=== PATIENT | female | born 1990 | race Caucasian/White ===

== ENCOUNTER 2018-05-23 06:20 | Emergency (ER) | payer BC, OTHER ==
[2018-05-23 07:00] LABS: Absolute Lymphocytes (CBC) 1.3 K/uL (0.7-4.9); Absolute Monocytes 0.5 K/uL (0.1-1.3); Absolute Neutrophil 7.4 K/uL (1.8-8.0); Basophils % 0.6 % (0-1.3); Eosinophils % 0.9 % (0-4.4); Hematocrit 32.1 % (36.0-45.0); Lymphocytes % 13.8 % (15.3-44.8); MPV 7.3 fL (7.6-11.3); Monocytes % 5.5 % (3.3-12.3); RBC Red Blood Cell Count 4.33 M/uL (3.86-4.86)
[2018-05-23 07:03] LABS: Protime INR 1.08
[2018-05-23 07:22] LABS: ALT/SGPT 23 U/L (12-78); AST/SGOT 9 U/L (15-37); Albumin 3.5 g/dL (3.4-5.0); Alkaline Phosphatase 126 U/L (45-117); BUN Blood Urea Nitrogen 12 mg/dL (7-18); Bicarbonate 24 mmol/L (21-32); Bilirubin Direct 0.1 mg/dL (0-0.2); Bilirubin Total 0.5 mg/dL (0.2-1.0); Glucose Level 102 mg/dL (74-106); Magnesium 1.9 mg/dL (1.8-2.4); Potassium 3.7 mmol/L (3.5-5.1); Protein, Total 7.9 g/dL (6.4-8.2); Sodium Level 137 mmol/L (136-145); Troponin (Emerg Dept Use Only) < 0.02 ng/mL (0.0-0.045)
[2018-05-23] MEDS ORDERED: ONDANSETRON 4 MG/2 ML VIAL ONE (07:24)
[2018-05-23 07:39] LABS: NT PRO-BNP < 5 pg/mL (<125)
--- NOTE | 2018-05-23 08:08 | RAD REPORT ---
EXAM DESCRIPTION: CT - Head Brain Wo Cont - 05/23/2018 7:05 am CLINICAL HISTORY: paresthesias Headache, drowsiness, TIA COMPARISON: HEAD BRAIN W O CONTRAST dated 06/22/2011 TECHNIQUE: All CT scans are performed using dose optimization technique as appropriate and may inclu de automated exposure control or mA/KV adjustment according to patient size. FINDINGS: No intracranial hemorrhage, hydrocephalus or extra-axial fluid collection.No areas of brai n edema or evidence of midline shift. The paranasal sinuses and mastoids are clear. The calvarium is intact. IMPRESSION: No acute intracranial abnormality.
--- NOTE | 2018-05-23 08:12 | RAD REPORT ---
EXAM DESCRIPTION: RAD - Chest Single View - 05/23/2018 6:57 am CLINICAL HISTORY: weakness Chest pain. COMPARISON: CHEST SINGLE VIEW dated 11/22/2011 FINDINGS: Portable technique limits examination quality. The lungs are grossly clear. The heart is normal in size. No displaced fractures. IMPRESSION: No acute intrathoracic process suspected.
--- NOTE | 2018-05-23 09:49 | RAD REPORT ---
EXAM DESCRIPTION: MRI - Brain Wo Cont - 05/23/2018 9:18 am CLINICAL HISTORY: WEAKNESS Headache, drowsiness, paresthesia. COMPARISON: Head Brain Wo Cont dated 05/23/2018 TECHNIQUE: Multi-sequence, multiplanar MR imaging of the brain was performed without contrast. FINDINGS: No intracranial hemorrhage, hydrocephalus or extra-axial fluid collections. No edema or sh ift of midline structures. No findings to suspect brain mass. DWI is negative for acute CVA. Midline structures are normally formed. Mastoid air cells and paranasal sinuses are clear. IMPRESSION: No acute or concerning intracranial abnormalities.
--- NOTE | 2018-05-23 10:31 | EKG ---
Test Date: 2018-04-22 Test Time: 06:46:28 Md Senior Research Scientist: NATHAN MEASUREMENT RESULTS: Intervals: Rate: 70 IA: 176 QRSD: 90 QT: 382 QTc: 412 [place]: P: 47 IA: 176 QRS: 28 T: -7 INTERPRETIVE STATEMENTS: Normal sinus rhythm Nonspecific T wave abnormality Abnormal ECG Compared to ECG 03/25/2012 15:14:53 T-wave abnormality now present Electronically Signed On 05-23-18 10:30:08 MECHANICAL FACILITIES TECHNICIAN by Seth Beach
--- NOTE | 2018-05-23 10:40 | ER ---
Nurse's Notes [facility] Name: Niki Champion Age: 27 yrs Sex: Female : 1990 Arrival Date: 05/23/2018 Time: 06:22 Bed 14 Private MD: Diagnosis: Paresthesia of skin Presentation: 05/23 06:25 Presenting complaint: EMS states: "she says she is having numbness on her right arm and jd3 right side of jaw that started at 0430. She says it feels like it is asleep. says upon arrival it has spread to all lower jaw.". Transition of care: patient was not received from another setting of care. Onset of symptoms was May 23, 2018. Risk Assessment: Do you want to hurt yourself or someone else? Patient reports no desire to harm self or others. Initial Sepsis Screen: Does the patient meet any 2 criteria? No. Patient's initial sepsis screen is negative. Does the patient have a suspected source of infection? No. Patient's initial sepsis screen is negative. Care prior to arrival: None. 06:25 Method Of Arrival: EMS: [facility] jd3 06:25 Acuity: SUREKHA 3 jd3 DETECTIVE AND INTELLIGENCE ANALYST: 06:29 LMP 05/11/2018 jd3 Historical: - Allergies: 06:29 cardec; jd3 06:29 PENICILLINS; jd3 06:29 Keflex; jd3 06:29 Rondec DM; jd3 - Home Meds: 06:29 Eliquis oral oral [Active]; jd3 - PMHx: 06:29 blood clot; jd3 - PSHx: 06:29 Hernia repair; Adenoids; DVT removed; jd3 - Immunization history:: Adult Immunizations unknown. - Social history:: Smoking status: Patient/guardian denies using tobacco. - Ebola Screening: : Patient negative for fever greater than or equal to 101.5 degrees Fahrenheit, and additional compatible Ebola Virus Disease symptoms. Screenin:30 Abuse screen: Denies threats or abuse. Nutritional screening: No deficits noted. jd3 Tuberculosis screening: No symptoms or risk factors identified. Fall Risk Ambulatory Aid- None/Bed Rest/Nurse Assist (0 pts). Gait- Normal/Bed Rest/Wheelchair (0 pts) Mental Status- Oriented to own ability (0 pts). Total Souza Fall Scale indicates No Risk (0-24 pts). Assessment: 06:30 Reassessment: ER provider did not want to call "code stroke at this time." NIH scale jd3 documented. 06:31 General: Appears in no apparent distress. uncomfortable, Behavior is calm, cooperative, jd3 appropriate for age. Pain: Complains of pain in head Quality of pain is described as aching. Neuro: Level of Consciousness is awake, alert, obeys commands, Oriented to person, place, time, situation, Appropriate for age Railway Signal Electrician are equal bilaterally Moves all extremities. Full function Gait is steady, Speech is normal, Facial symmetry appears normal, Pupils are PERRLA, Numbness in right arm Reports numbness in right arm. Cardiovascular: Denies chest pain, Capillary refill < 3 seconds Patient's skin is warm and dry. Respiratory: Airway is patent Respiratory effort is even, unlabored, Respiratory pattern is regular, symmetrical. GI: No signs and/or symptoms were reported involving the gastrointestinal system. : No signs and/or symptoms were reported regarding the genitourinary system. EENT: No signs and/or symptoms were reported regarding the EENT system. Derm: Skin is intact, Skin is dry, Skin is normal, Skin temperature is warm. Musculoskeletal: Circulation, motion, and sensation intact. Range of motion: intact in all extremities. 07:10 Reassessment: Patient appears in no apparent distress at this time. Patient and/or jl7 family updated on plan of care and expected duration. Pain level reassessed. Patient is alert, oriented x 3, equal unlabored respirations, skin warm/dry/pink. Pt returned from CT, began vomiting. ERP notified, see MAR for orders. Pt states "I think I'm better now. I think I just moved too fast." Pt requests to hold medication and use if she gets nauseous again. 08:30 Reassessment: Patient appears in no apparent distress at this time. No changes from jl7 previously documented assessment. Patient and/or family updated on plan of care and expected duration. Pain level reassessed. Patient is alert, oriented x 3, equal unlabored respirations, skin warm/dry/pink. 09:30 Reassessment: Patient appears in no apparent distress at this time. Patient and/or jl7 family updated on plan of care and expected duration. Pain level reassessed. Patient is alert, oriented x 3, equal unlabored respirations, skin warm/dry/pink. 10:30 Reassessment: Patient appears in no apparent distress at this time. No changes from jl7 previously documented assessment. Patient and/or family updated on plan of care and expected duration. Pain level reassessed. Patient is alert, oriented x 3, equal unlabored respirations, skin warm/dry/pink. Vital Signs: 06:29 BP 144 / 84; Pulse 79; Resp 17 S; Temp 98.9(O); Pulse Ox 99% on R/A; Weight 104.33 kg jd3 (R); Height 5 ft. 8 in. (172.72 cm) (R); Pain 4/10; 07:20 BP 130 / 85; Pulse 80; Resp 16; Pulse Ox 98% ; jl7 08:30 BP 130 / 81; Pulse 66; Resp 16 S; Pulse Ox 99% on R/A; jl7 10:30 BP 130 / 82; Pulse 70; Resp 16 S; Pulse Ox 100% on R/A; Pain 0/10; jl7 06:29 Body Mass Index 34.97 (104.33 kg, 172.72 cm) jd3 NIH Stroke Scale Scores: 06:30 NIHSS Score: 1 [facility] ED Course: 06:22 Patient arrived in ED. am2 06:22 Keith Lindsey PA is PHCP. [facility] 06:23 Arsen Mercer MD is Attending Physician. [facility] 06:24 Lalit Cavazos, RN is Primary Nurse. jd3 06:27 Triage completed. jd3 06:30 Arm band placed on. jd3 06:33 Patient has correct armband on for positive identification. Bed in low position. Call [facility] light in reach. Side rails up X 1. Adult w/ patient. 06:45 Inserted saline lock: 20 gauge in right antecubital area, using aseptic technique. j Blood collected. 06:57 XRAY Chest (1 view) In Process Unspecified. EDMS 07:06 CT Head Brain wo Cont In Process Unspecified. EDMS 08:51 Patient moved to MRI via wheelchair. 09:09 Brain Wo Cont In Process Unspecified. EDMS 10:39 Derrell Bueno MD is Referral Physician. jmm 10:53 No provider procedures requiring assistance completed. IV discontinued, intact, jl7 bleeding controlled, No redness/swelling at site. Pressure dressing applied. Administered Medications: 10:52 Not Given (Patient Refused): Zofran 4 mg IVP once; over 2 minutes jl7 Outcome: 10:39 Discharge ordered by . casandra 10:53 Discharged to home ambulatory, with friend. jl7 10:53 Condition: stable 10:53 Discharge instructions given to patient, family, Instructed on discharge instructions, follow up and referral plans. Demonstrated understanding of instructions, follow-up care. 10:55 Patient left the ED. jl7 NIH Stroke Scale - NIH Stroke Score Date: 05/23/2018 Time: 06:30 Total Score = 1 1a. Level of Consciousness (LOC) - 0(Alert) 1b. Level of Consciousness (LOC) (Year \\T\\ Age) - 0(Both) 1c. LOC Commands (Open \\T\\ Closes Eyes/Water Control Supervisor) - 0(Both) 2. Best Gaze (Lateral Gaze Paresis) - 0(Normal) 3. Visual Field Loss - 0(No visual loss) 4. Facial Palsy - 0(Normal) 5a. Left Arm: Motor (10-second hold) - 0(No drift) 5b. Right Arm: Motor (10-second hold) - 0(No drift) 6a. Left Leg: Motor (5-second hold - always test supine) - 0(No drift) 6b. Right Leg: Motor (5-second hold - always test supine) - 0(No drift) 7. Limb Ataxia (finger/nose \\T\\ heel/rojas - test with eyes open) - 0(Absent) 8. Sensory Loss (pinprick arms/legs/face) - 1(Mild to moderate loss) 9. Best Language: Aphasia (description/naming/reading) - 0(No aphasia) 10. Dysarthria (speech clarity - read or repeat words) - 0(Normal) 11. Extinction and Inattention (visual/tactile/auditory/spatial/personal) - 0(No abnormality) Initials: jd3 Signatures: Dispatcher [employer] EDMS Keith Lindsey PA PA jmm Compean, Lorena lc Leal, Jahala, RN RN jl7 Rufina Robledo Jonathon, RN RN jd3
--- NOTE | 2018-05-23 10:41 | EDPHYS ---
Physician Documentation [facility] Name: Niki Champion Age: 27 yrs Sex: Female : 1990 Arrival Date: 05/23/2018 Time: 06:22 Bed 14 Private MD: ED Physician Arsen Mercer HPI: 05/23 06:24 This 27 yrs old Female presents to ER via EMS with complaints of Weakness, jmm Numbness Of Arm. 06:24 The patient presents to the emergency department with paresthesias of the dorsal aspect jmm of distal phalanx of right index finger, dorsal aspect of middle phalanx of right index finger, dorsal aspect of proximal phalanx of right index finger, dorsal aspect of distal phalanx of right middle finger, dorsal aspect of middle phalanx of right middle finger, dorsal aspect of proximal phalanx of right middle finger, palmar aspect of distal phalanx of right ring finger, palmar aspect of middle phalanx of right ring finger, palmar aspect of proximal phalanx of right ring finger, palmar aspect of distal phalanx of right middle finger, palmar aspect of middle phalanx of right middle finger, palmar aspect of proximal phalanx of right middle finger, palmar aspect of distal phalanx of right index finger, palmar aspect of middle phalanx of right index finger and palmar aspect of proxima; phalanx of right index finger. Onset: The symptoms/episode began/occurred gradually, at 04:30. This is a 27 year old female with a history of DVT presents to the ED with complaints of numbness to the right side of her jaw beginning at 0430 which spread to the entire lower half of her face. Patient also complaints of numbness to her 2-4 fingers. Denies focal weakness. Patient also complaints of transient visual changes, stating that her vision appear pixelated. 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 . NURSING SPECIALIST: 06:29 LMP 05/11/2018 jd3 Historical: - Allergies: 06:29 cardec; jd3 06:29 PENICILLINS; jd3 06:29 Keflex; jd3 06:29 Rondec DM; jd3 - Home Meds: 06:29 Eliquis oral oral [Active]; jd3 - PMHx: 06:29 blood clot; jd3 - PSHx: 06:29 Hernia repair; Adenoids; DVT removed; jd3 - Immunization history:: Adult Immunizations unknown. - Social history:: Smoking status: Patient/guardian denies using tobacco. - Ebola Screening: : Patient negative for fever greater than or equal to 101.5 degrees Fahrenheit, and additional compatible Ebola Virus Disease symptoms. ROS: 06:30 Constitutional: Negative for fever, chills, and weight loss, Cardiovascular: Negative jmm for chest pain, palpitations, and edema, Respiratory: Negative for shortness of breath, cough, wheezing, and pleuritic chest pain. 06:30 MS/extremity: Positive for paresthesias. 06:30 Neuro: Positive for numbness. 06:30 All other systems are negative. Exam: 06:30 Constitutional: This is a well developed, well nourished patient who is awake, alert, jmm and in no acute distress. Head/Face: atraumatic. Eyes: EOMI, no conjunctival erythema appreciated ENT: Moist Mucus Membranes Neck: Trachea midline, Supple Chest/axilla: Normal chest wall appearance and motion. Cardiovascular: Regular rate and rhythm. No edema appreciated Respiratory: Normal respirations, no respiratory distress appreciated Abdomen/GI: Non distended, soft Back: Normal ROM Skin: General appearance color normal MS/ Extremity: Moves all extremities, no obvious deformities appreciated, no edema noted to the lower extremities 06:30 Neuro: Orientation: is normal, Mentation: is normal, Memory: is normal, Motor: is normal, Sensation: no pronator drift is appreciated. 06:30 Psych: Behavior/mood is pleasant, cooperative. Vital Signs: 06:29 BP 144 / 84; Pulse 79; Resp 17 S; Temp 98.9(O); Pulse Ox 99% on R/A; Weight 104.33 kg jd3 (R); Height 5 ft. 8 in. (172.72 cm) (R); Pain 4/10; 07:20 BP 130 / 85; Pulse 80; Resp 16; Pulse Ox 98% ; jl7 08:30 BP 130 / 81; Pulse 66; Resp 16 S; Pulse Ox 99% on R/A; jl7 10:30 BP 130 / 82; Pulse 70; Resp 16 S; Pulse Ox 100% on R/A; Pain 0/10; jl7 06:29 Body Mass Index 34.97 (104.33 kg, 172.72 cm) jd3 NIH Stroke Scale Scores: 06:30 NIHSS Score: 1 j MDM: 06:24 Patient medically screened. morgan 10:37 Data reviewed: vital signs, nurses notes. Data interpreted: Pulse oximetry: on room air jm is 99 %. Interpretation: normal. Counseling: I had a detailed discussion with the patient and/or guardian regarding: the historical points, exam findings, and any diagnostic results supporting the discharge/admit diagnosis, lab results, radiology results, the need for outpatient follow up. ED course: Patient states numbness has improved in the ED. No motor deficits. Negative CT and MRI. I discussed the patient with Dr. Bueno whom will follow up with patient outpatient for further evaluation. I discussed this with the patient and family whom agree with the plan of care. . 05/23 06:36 Order name: Basic Metabolic Panel; Complete Time: 07:42 [facility] 05/23 06:36 Order name: CBC with Diff; Complete Time: 07:11 m 05/23 06:36 Order name: LFT's; Complete Time: 07:42 m 05/23 06:36 Order name: Magnesium; Complete Time: 07:42 m 05/23 06:36 Order name: NT PRO-BNP; Complete Time: 07:42 m 05/23 06:36 Order name: PT-INR; Complete Time: 07:11 jmm 05/23 06:36 Order name: Troponin (emerg Dept Use Only); Complete Time: 07:42 [facility] 05/23 06:36 Order name: XRAY Chest (1 view); Complete Time: 08:22 m 05/23 06:36 Order name: EKG; Complete Time: 06:37 jmm 05/23 06:36 Order name: Cardiac monitoring; Complete Time: 06:50 jmm 05/23 06:36 Order name: CT Head Brain wo Cont; Complete Time: 08:09 m 05/23 08:46 Order name: Brain Wo Cont; Complete Time: 09:52 EDME 05/23 06:36 Order name: EKG - Nurse/Tech; Complete Time: 06:50 jmm 05/23 06:36 Order name: IV Saline Lock; Complete Time: 06:50 m 05/23 06:36 Order name: Labs collected and sent; Complete Time: 06:50 [facility] 02 06:36 Order name: O2 Per Protocol; Complete Time: 06:38 [facility] 02 06:36 Order name: O2 Sat Monitoring; Complete Time: 06:38 [facility] Administered Medications: 10:52 Not Given (Patient Refused): Zofran 4 mg IVP once; over 2 minutes jl7 Disposition: 12:01 Co-signature as Attending Physician, Arsen Mercer MD I agree with the assessment and morgan plan of care. Disposition: 05/23/18 10:39 Discharged to Home. Impression: Paresthesia of skin. - Condition is Stable. - Discharge Instructions: Paresthesia. - Medication Reconciliation Form, Thank You Letter, Antibiotic Education, Prescription Opioid Use form. - Follow up: Derrell Bueno MD; When: 2 - 3 days; Reason: Recheck today's complaints, Continuance of care, Re-evaluation by your physician. NIH Stroke Scale - NIH Stroke Score Date: 05/23/2018 Time: 06:30 Total Score = 1 1a. Level of Consciousness (LOC) - 0(Alert) 1b. Level of Consciousness (LOC) (Year \T\ Age) - 0(Both) 1c. LOC Commands (Open \T\ Closes Eyes/Managing Partner [employer]) - 0(Both) 2. Best Gaze (Lateral Gaze Paresis) - 0(Normal) 3. Visual Field Loss - 0(No visual loss) 4. Facial Palsy - 0(Normal) 5a. Left Arm: Motor (10-second hold) - 0(No drift) 5b. Right Arm: Motor (10-second hold) - 0(No drift) 6a. Left Leg: Motor (5-second hold - always test supine) - 0(No drift) 6b. Right Leg: Motor (5-second hold - always test supine) - 0(No drift) 7. Limb Ataxia (finger/nose \T\ heel/rojas - test with eyes open) - 0(Absent) 8. Sensory Loss (pinprick arms/legs/face) - 1(Mild to moderate loss) 9. Best Language: Aphasia (description/naming/reading) - 0(No aphasia) 10. Dysarthria (speech clarity - read or repeat words) - 0(Normal) 11. Extinction and Inattention (visual/tactile/auditory/spatial/personal) - 0(No abnormality) Initials: jd3 Signatures: Dispatcher [employer] EDME Arsen Mercer MD MD cha Mickail, Joel, PA PA jmm Leal, Jahala, RN RN jl7 Lalit Cavazos RN RN jd3 Corrections: (The following items were deleted from the chart) 08:46 08:29 MR STROKE PROTOCOL+MRI.RAD.BRZ ordered. [facility] 10:55 10:39 05/23/2018 10:39 Discharged to Home. Impression: Paresthesia of skin. jlLuis Condition is Stable. Forms are Medication Reconciliation Form, Thank You Letter, Antibiotic Education, Prescription Opioid Use. Follow up: Derrell Bueno; When: 2 - 3 days; Reason: Recheck today's complaints, Continuance of care, Re-evaluation by your physician. casandra
[2018-05-23 11:19] VITALS: TEMP 98.9
[2018-05-23 11:23] VITALS: BP 130/82; O2SAT 100
== END 2018-05-23 10:55 | disposition home or self-care (01) ==
LOC: ER 06:20
DX: R20.2 Paresthesia of skin (principal); Z86.718 Personal history of other venous thrombosis and embolism; Z79.01 Long term (current) use of anticoagulants; Z88.0 Allergy status to penicillin; Z88.1 Allergy status to other antibiotic agents; Z88.8 Allergy status to other drugs, medicaments and biological substances
CPT/HCPCS: 36415; 70450; 70551; 71045; 80048; 80076; 83735; 83880; 84484; 85025; 85610; 93005; 99284; J2405